=== PATIENT | male | born 1975 | race Caucasian/White ===

== ENCOUNTER 2017-08-03 17:49 | Emergency (ER) | payer BC ==
[~2017-08-03] VITALS: Ht 172.7 cm; Wt 106.6 kg
[2017-08-03 17:49] VITALS: BP 155/98
--- NOTE | 2017-08-03 18:22 | PHYS DOC ---
Adult General Chief Complaint Chief Complaint: ABSCESS HPI HPI 41-year-old male presents with a lesion on his buttocks. He states in the 80s. It started as a pimple but has continued to grow. He has never had one of these before as far as he remembers. He has had some diffuse pimples with whiteheads on his posterior thighs and buttocks in the past. He denies fever or chills. He works outside in the heat on a regular basis. He didn't want to wait longer to try to get into his PCP so he came to the ED. He has no other complaints. Review of Systems Review of Systems Constitutional: Denies fever or chills [] Eyes: Denies change in visual acuity, redness, or eye pain [] HENT: Denies nasal congestion or sore throat [] Respiratory: Denies cough or shortness of breath [] Cardiovascular: No additional information not addressed in HPI [] GI: Denies abdominal pain, nausea, vomiting, bloody stools or diarrhea [] : Denies dysuria or hematuria [] Musculoskeletal: Denies back pain or joint pain [] Integument: boil on buttocks [] Neurologic: Denies headache, focal weakness or sensory changes [] Endocrine: Denies polyuria or polydipsia [] All other systems were reviewed and found to be within normal limits, except as documented in this note. Physical Exam Physical Exam Constitutional: Well developed, well nourished, no acute distress, non-toxic appearance. [] HENT: Normocephalic, atraumatic, bilateral external ears normal, oropharynx moist, no oral exudates, nose normal. [] Eyes: PERRLA, EOMI, conjunctiva normal, no discharge. [] Neck: Normal range of motion, no tenderness, supple, no stridor. [] Cardiovascular:Heart rate regular rhythm, no murmur [] Lungs & Thorax: Bilateral breath sounds clear to auscultation [] Abdomen: Bowel sounds normal, soft, no tenderness, no masses, no pulsatile masses. [] Skin: 3 cm erythematous lesion just to the left of midline of his buttocks. There is a fluctuant center. There is no current drainage. Other scattered red papules, some with pus centimeters all less than 5 mm.[] Back: No tenderness, no CVA tenderness. [] Extremities: No tenderness, no cyanosis, no clubbing, ROM intact, no edema. [] Neurologic: Alert and oriented X 3, normal motor function, normal sensory function, no focal deficits noted. [] Psychologic: Affect normal, judgement normal, mood normal. [] EKG EKG [] Radiology/Procedures Radiology/Procedures [] Course & Med Decision Making Course & Med Decision Making Pertinent Labs and Imaging studies reviewed. (See chart for details) The patient did have an abscess that needed to be drained. Migraine without consultation. See below for further details. Fran's the patient on Bactrim DS for [address] a wick in the wound advised that he try to keep that area until at least tomorrow. He will take it out. I told him that if it falls out not to worry about it. I&D: I discussed the procedure with the patient and answered all his questions. He gave permission for the procedure. The correct location was agreed to by the patient and myself. The area was prepped with alcohol. The skin was numbed with 1% lidocaine with epinephrine about 2 mL. After good anesthesia was achieved, an 11 blade was used to make a 1/2 cm incision in the center of the abscess. Purulent fluid began to express. A culture was obtained and sent to the lab. The wound was explored and loculations were broken up with a curved clamp. A 1/ 4 cm wide wick was placed within the wound. It was not packed full. A clean gauze dressing was placed over the area. There were no complications. The patient tolerated the procedure well. He had some pain relief immediately after the procedure. [] Dragon Disclaimer Dragon Disclaimer This electronic medical record was generated, in whole or in part, using a voice recognition dictation system. Departure Departure: Referrals: PCP,NO (PCP) STEPHANIE COLLINS DO August 03, 2017 18:22
[2017-08-03] MEDS ORDERED: IV NORMAL SALINE 1,000ML 1,000 ML IV ONE (18:30)
[2017-08-03] MEDS ORDERED: LIDOCAINE 1%/EPI 1:100,000 20 ML VIAL. IJ ONE (18:30)
[2017-08-03 18:50] LABS: BASO # 0.1 x10^3/uL (0.0-0.2); BASO % 1 % (0-3); EOS # 0.1 x10^3/uL (0.0-0.7); EOS % 0 % (0-3); HEMOGLOBIN 15.3 g/dL (13.0-17.5); LYMPH # 2.2 x10^3/uL (1.0-4.8); LYMPH % 16 % (24-48); MEAN CORPUSCULAR HEMOGLOBIN 31 pg (25-35); MEAN CORPUSCULAR HGB CONC 36 g/dL (31-37); MEAN CORPUSCULAR VOLUME 88 fL (79-100); MONO # 1.2 x10^3/uL (0.0-1.1); MONO % 8 % (0-9); NEUT # 10.5 x10^3uL (1.8-7.7); NEUT % 75 % (31-73); PLATELET COUNT 242 x10^3/uL (140-400); RED BLOOD COUNT 4.89 x10^6/uL (4.30-5.70); RED CELL DISTRIBUTION WIDTH 12.5 % (11.5-14.5)
[2017-08-03 18:56] LABS: CALCIUM 9.1 mg/dL (8.5-10.1); GFR 83.2; POTASSIUM 3.6 mmol/L (3.5-5.1)
[2017-08-03] MEDS ORDERED: SULF1TAB24 PO (19:21)
== END 2017-08-03 19:32 | disposition home or self-care (01) ==
LOC: ER 17:49
DX: L02.31 Cutaneous abscess of buttock (principal)
CPT/HCPCS: 10061; 36415; 80048; 85025; 87070; 99284; J7030

== ENCOUNTER → 2020-04-25 | Outpatient (CLI) | payer BC ==
[~2020-04-25] MED LIST: SULF1TAB24 PO
--- NOTE | 2020-04-25 15:34 | RAD ---
EXAM: PA, oblique and lateral views of the left hand DATE: 04/25/2020 10:12 AM INDICATION: Reason: LEFT HAND PAIN / Spl. Instructions: / History: COMPARISON: 04/11/2020 FINDINGS: Metallic density is seen through the proximal phalanx of the left index finger. Moderate associated s oft tissue swelling. No acute fracture or dislocation. Joint spaces are preserved without significant degenerative/proliferative change. IMPRESSION: 1. Metallic density proximal phalanx left index finger with moderate associated soft tissue swelling , with interval removal of the previously seen nail. 2. No acute fracture or dislocation. Electronically signed by: Cash Mckoy MD (04/25/2020 3:31 PM) [id number]
== END ==
LOC: RAD 10:00
PROVIDERS: ATTEND Physician Assistant
DX: M79.89 Other specified soft tissue disorders (principal); M85.842 Other specified disorders of bone density and structure, left hand; Z98.890 Other specified postprocedural states
CPT/HCPCS: 73130